=== PATIENT | female | born 1950 | race Caucasian/White ===

== ENCOUNTER 2020-06-21 15:20 | Emergency (ER) | payer OTHER ==
[~2020-06-21] VITALS: Ht 154.9 cm; Wt 61.2 kg
[2020-06-21] MEDS ORDERED: LIPITOR 20 MG T20 M1 PO (15:47)
[2020-06-21] MEDS ORDERED: LEVO-T50 MCG PO (15:47)
[2020-06-21] MEDS ORDERED: SINGULAIR5 MG PO (15:48)
[2020-06-21 15:49] LABS: URINE BILIRUBIN NEGATIVE (Negative); URINE BLOOD NEGATIVE (Negative); URINE CLARITY CLEAR; URINE COLOR YELLOW; URINE GLUCOSE-RANDOM NEGATIVE (Negative); URINE KETONES NEGATIVE (Negative); URINE LEUKOCYTES-REFLEX NEGATIVE (Negative); URINE NITRITE-REFLEX NEGATIVE (Negative); URINE PROTEIN NEGATIVE (Negative); URINE UROBILINOGEN 0.2 E.U./dl (0.2-1.0)
[2020-06-21] MEDS ORDERED: STOOL SOFTENER100 MG PO (15:49)
[2020-06-21 15:59] LABS: ABSOLUTE BASOPHILS 0.1 thou/uL (0.0-0.2); ABSOLUTE EOSINOPHILS 0.5 thou/uL (0.0-0.7); ABSOLUTE LYMPHOCYTES 1.8 thou/uL (0.8-5.3); ABSOLUTE MONOCYTES 0.6 thou/uL (0.0-1.2); ABSOLUTE NEUTROPHILS 4.2 thou/uL (1.6-8.1); BASOPHILS 0.9 %; EOSINOPHILS 7.6 %; HEMOGLOBIN 13.7 gm/dL (12.0-15.0); LYMPHOCYTES 24.8 %; MCH 30.4 pg (26.0-34.0); MCHC 34.4 g/dL (28.0-37.0); MCV 88.4 fL (80.0-100.0); MONOCYTES 7.9 %; NUCLEATED RBCS 0 /100WBC; PLATELET COUNT* 266 thou/uL (150-400); POLYS 58.8 %; RBC 4.53 mil/uL (4.20-5.00); RDW-CV 12.4 % (10.5-14.5); WBC 7.2 thou/uL (4.0-11.0)
[2020-06-21 16:09] LABS: CALCIUM 8.8 mg/dL (8.5-10.1); POTASSIUM 3.7 mmol/L (3.5-5.1)
[2020-06-21 16:13] LABS: ALBUMIN 3.9 g/dL (3.4-5.0); TOTAL BILIRUBIN 0.3 mg/dL (<0.1-1.0); TOTAL PROTEIN 7.1 g/dL (6.4-8.2)
[2020-06-21] MEDS ORDERED: MEDROLDOSEPACK PO (16:42)
[2020-06-21] MEDS ORDERED: NORCO 5-325 TA1 EAC2 PO (16:42)
[2020-06-21] MEDS ORDERED: ZANAFLEX4 MG PO (16:42)
[2020-06-21 17:00] VITALS: BP 145/67
== END 2020-06-21 17:00 | disposition home or self-care (01) ==
LOC: M.ERS 15:20
PROVIDERS: Nurse Practitioner Family
DX: M54.5 Low back pain (principal); M19.90 Unspecified osteoarthritis, unspecified site; Z79.899 Other long term (current) drug therapy; Z88.6 Allergy status to analgesic agent; Z88.8 Allergy status to other drugs, medicaments and biological substances

== ENCOUNTER 2021-07-24 08:19 | Emergency (ER) | payer OTHER ==
[~2021-07-24] VITALS: Ht 152.4 cm; Wt 59.0 kg
[~2021-07-24 08:19] MED LIST: LEVO-T50 MCG PO; LIPITOR 20 MG T20 M1 PO; MEDROLDOSEPACK PO; NORCO 5-325 TA1 EAC2 PO; SINGULAIR5 MG PO; STOOL SOFTENER100 MG PO; ZANAFLEX4 MG PO
[2021-07-24 08:49] LABS: ABSOLUTE BASOPHILS 0.1 thou/uL (0.0-0.2); ABSOLUTE EOSINOPHILS 0.4 thou/uL (0.0-0.7); ABSOLUTE LYMPHOCYTES 2.1 thou/uL (0.8-5.3); ABSOLUTE MONOCYTES 0.4 thou/uL (0.0-1.2); BASOPHILS 0.8 %; EOSINOPHILS 5.2 %; HEMATOCRIT 42.4 % (37.0-47.0); HEMOGLOBIN 14.4 gm/dL (12.0-15.0); LYMPHOCYTES 26.2 %; MCH 30.3 pg (26.0-34.0); MCHC 33.9 g/dL (28.0-37.0); MCV 89.5 fL (80.0-100.0); MONOCYTES 5.6 %; MPV 7.2 fl. (7.2-11.1); NUCLEATED RBCS 0 /100WBC; PLATELET COUNT* 245 thou/uL (150-400); POLYS 62.2 %; RBC 4.74 mil/uL (4.20-5.00); RDW-CV 12.3 % (10.5-14.5)
[2021-07-24 08:59] LABS: CALCIUM 8.8 mg/dL (8.5-10.1); POTASSIUM 3.5 mmol/L (3.5-5.1)
[2021-07-24 09:04] LABS: TOTAL BILIRUBIN 0.5 mg/dL (<0.1-1.0); TOTAL PROTEIN 7.3 g/dL (6.4-8.2)
--- NOTE | 2021-07-24 09:14 | EKG ---
[place] [address] ELECTROCARDIOGRAM REPORT Name: TERESA WOODRUFF Room: [facility]#: [id number] Admission: 07/24/21 Attend Phys: Discharge: Date of : 52 Date of Service: 07/24/21823 Report #: [id number] THIS REPORT FOR: //name// [facility] ED Test Date: 2021-07-24 Test Time: 08:24:52 Pat Name: TERESA WOODRUFF Department: Room: Gender: Office Assistance: [facility] : 1950 Requested By: Alvin Noland Order Number: [id number] MD: Christopher Barragan Measurements Intervals [place] Rate: 99 P: 60 CA: 165 QRS: 7 QRSD: 88 T: 32 QT: 323 QTc: 415 Interpretive Statements Sinus rhythm No previous ECG available for comparison Electronically Signed On 07-24-2021 9:14:21 [employer] by Christopher Barragan [email or web address] <ELECTRONICALLY SIGNED> By: Christopher Barragan MD, [facility] 07/24/21913 3 3 Christopher Barragan MD, FACC /EPI
[2021-07-24 09:45] VITALS: BP 161/72
== END 2021-07-24 09:45 | disposition home or self-care (01) ==
LOC: M.ERS 08:19
PROVIDERS: Emergency Medicine
DX: R07.89 Other chest pain (principal); Z20.822 Contact with and (suspected) exposure to COVID-19; I10 Essential (primary) hypertension; E78.5 Hyperlipidemia, unspecified; M19.90 Unspecified osteoarthritis, unspecified site; Z79.899 Other long term (current) drug therapy; Z88.8 Allergy status to other drugs, medicaments and biological substances; Z88.6 Allergy status to analgesic agent